=== PATIENT | female | born 1995 | race Caucasian/White ===

== ENCOUNTER → 2017-09-29 | Outpatient (REF) | payer OTHER ==
[2017-09-29 17:59] LABS: CHLAMYDIA DNA AMPLIFICATION NEGATIVE (NEGATIVE); GC DNA AMPLIFICATION NEGATIVE (NEGATIVE)
== END ==
LOC: M SFHCWAGY 11:37
DX: Z12.4 Encounter for screening for malignant neoplasm of cervix (principal); Z11.3 Encounter for screening for infections with a predominantly sexual mode of transmission

== ENCOUNTER → 2017-10-24 | Outpatient (REF) | payer OTHER | LOC: M LAB REF 13:29 | DX: J02.0 Streptococcal pharyngitis (principal) | CPT/HCPCS: 87070 ==

== ENCOUNTER 2018-06-03 10:22 | Emergency (ER) | payer OTHER ==
[2018-06-03] MEDS ORDERED: LORazepam 2 MG TAB PO (10:30)
[2018-06-03] MEDS: hydrOXYzine 25 MG TAB PO (10:49)
[2018-06-03 10:50] LABS: HEMATOCRIT 42.6 % (36.0-47.0); HEMOGLOBIN 14.7 g/dl (12.0-15.5); MEAN CORPUSCULAR HEMOGLOBIN 30.1 pg (27.0-33.0); MEAN CORPUSCULAR HGB CONC 34.5 g/dl (32.0-36.5); MEAN CORPUSCULAR VOLUME 87.1 fl (80.0-96.0); PLATELET COUNT, AUTOMATED 279 10^3/uL (150-450); RED BLOOD COUNT 4.89 10^6/uL (4.00-5.40)
[2018-06-03 11:03] LABS: CONTROL LINE HCG INT CTR LINE PRESENT; HCG, SERUM QUALITATIVE NEGATIVE (NEGATIVE)
[2018-06-03 11:30] LABS: ALBUMIN 4.3 GM/DL (3.2-5.2); ALBUMIN/GLOBULIN RATIO 1.48 (1.00-1.93); ALKALINE PHOSPHATASE 69 U/L (45-117); ALT/SGPT 22 U/L (12-78); ANION GAP 14 MEQ/L (8-16); AST/SGOT 16 U/L (7-37); BILIRUBIN,DIRECT < 0.1 MG/DL (0.0-0.2); BILIRUBIN,TOTAL 0.2 MG/DL (0.2-1.0); BLOOD UREA NITROGEN 7 MG/DL (7-18); CARBON DIOXIDE LEVEL 19 MEQ/L (21-32); CHLORIDE LEVEL 114 MEQ/L (98-107); ETHYL ALCOHOL (ETHANOL) 0.084 % (0.000-0.010); GLOMERULAR FILTRATION RATE > 60.0 (>60); GLUCOSE, FASTING 88 MG/DL (70-100); POTASSIUM SERUM 3.7 MEQ/L (3.5-5.1); SALICYLATE LEVEL 2.2 MG/DL (5.0-30.0); SODIUM LEVEL 147 MEQ/L (136-145); TOTAL PROTEIN 7.2 GM/DL (6.4-8.2)
[2018-06-03 11:31] LABS: ACETAMINOPHEN LEVEL < 2.0 UG/ML (10.0-30.0)
[2018-06-03 11:40] LABS: AMPHETAMINES LEVEL URINE NEGATIVE (NEGATIVE); BARBITURATES URINE NEGATIVE (NEGATIVE); BENZODIAZEPINES URINE NEGATIVE (NEGATIVE); CANNABINOIDS URINE NEGATIVE (NEGATIVE); COCAINE METABOLITE URINE NEGATIVE (NEGATIVE); METHADONE URINE NEGATIVE (NEGATIVE); OPIATES URINE NEGATIVE (NEGATIVE); PHENCYCLIDINE URINE NEGATIVE (NEGATIVE)
== END 2018-06-03 15:31 | disposition home or self-care (01) ==
LOC: M ED 10:22
DX: F43.20 Adjustment disorder, unspecified (principal); J45.909 Unspecified asthma, uncomplicated; Z79.3 Long term (current) use of hormonal contraceptives
CPT/HCPCS: G0480

== ENCOUNTER 2018-06-06 01:07 | Emergency (ER) | payer OTHER ==
[2018-06-06] MEDS ORDERED: MAGIC MOUTHWASH SUSPENSION BTL SS (01:30)
[2018-06-06] MEDS: MAGIC MOUTHWASH SUSPENSION BTL SS (01:47)
[2018-06-06] MEDS: LIDOCAINE 1% SDV 5 ML VIAL DILUENT (02:30)
[2018-06-06] MEDS: cefTRIAXone SOD 250 MG VIAL (J0696) IM (02:30)
== END 2018-06-06 02:45 | disposition home or self-care (01) ==
LOC: M ED 01:07
DX: J02.9 Acute pharyngitis, unspecified (principal); J45.909 Unspecified asthma, uncomplicated; F17.210 Nicotine dependence, cigarettes, uncomplicated
CPT/HCPCS: J0696

== ENCOUNTER → 2018-08-31 | Outpatient (REF) | payer OTHER ==
[~2018-08-31] MED LIST: DOXY100C37 PO; MAGICMW SS
== END ==
LOC: M SFHCWAGY 12:02
PROVIDERS: ATTEND Nurse Practitioner Family
DX: R10.9 Unspecified abdominal pain (principal); R30.0 Dysuria

== ENCOUNTER → 2018-09-05 | Outpatient (REF) | payer OTHER ==
[2018-09-05 20:59] LABS: CHLAMYDIA DNA AMPLIFICATION NEGATIVE (NEGATIVE); GC DNA AMPLIFICATION NEGATIVE (NEGATIVE)
== END ==
LOC: M SFHCWAGY 17:15
PROVIDERS: ATTEND Nurse Practitioner Family
DX: Z11.3 Encounter for screening for infections with a predominantly sexual mode of transmission (principal)

== ENCOUNTER → 2018-09-14 | Outpatient (CLI) | payer OTHER ==
--- NOTE | 2018-09-14 18:27 | REP ---
Pelvic sonography: History: Pelvic pain, breakthrough bleeding. Depo-Provera. Findings: Transabdominal and transvaginal scanning are performed. Uterine dimensions are normal at 7.8 x 3.3 x 4.0 cm. Endometrial echo is 0.4 cm in thickness. The uterus is retroverted. There is a small quantity of physiologic fluid at the fundus. Visualized bladder muller are smooth. Normal ovaries are seen. Right ovary dimensions are 3.8 x 1.8 x 2.2 cm. Left ovary measures 3.8 x 2.1 x 1.8 cm. Impression: Normal pelvic sonography. Retroverted uterus.
== END ==
LOC: M WHC 12:47
PROVIDERS: ATTEND Nurse Practitioner Family
DX: R10.2 Pelvic and perineal pain (principal); N92.1 Excessive and frequent menstruation with irregular cycle; N85.4 Malposition of uterus

== ENCOUNTER → 2019-02-15 | Outpatient (REF) | payer OTHER | LOC: M SFHCWAGY 10:05 | PROVIDERS: ATTEND Family Medicine | DX: Z12.4 Encounter for screening for malignant neoplasm of cervix (principal) ==

== ENCOUNTER → 2019-08-11 | Outpatient (REF) | payer OTHER ==
[2019-08-11 20:32] LABS: INFLUENZA A AMPLIFICATION NEGATIVE (NEGATIVE); INFLUENZA B AMPLIFICATION NEGATIVE (NEGATIVE)
== END ==
LOC: M LAB REF 10:07
PROVIDERS: ATTEND Physician Assistant Medical
DX: E50.9 Vitamin A deficiency, unspecified (principal)

== ENCOUNTER → 2022-02-27 | Outpatient (REF) | payer OTHER ==
[~2022-02-27] MED LIST changes: +DOXY-443 PO; -DOXY100C37 PO
== END ==
LOC: M LAB REF 17:26
PROVIDERS: ATTEND Physician Assistant Medical
DX: J02.9 Acute pharyngitis, unspecified (principal)

== ENCOUNTER → 2022-03-01 | Outpatient (CLI) | payer OTHER ==
[2022-03-03 16:08] LABS: EBV AB TO NUCLEAR ANTIGEN 81.7 U/mL (0.0-17.9); EBV VIRAL CAPSID AG IgG >600.0 U/mL (0.0-17.9); EBV VIRAL CAPSID AG IgM <36.0 U/mL (0.0-35.9)
== END ==
LOC: M PLALAB 15:43
PROVIDERS: ATTEND Family Medicine
DX: J02.9 Acute pharyngitis, unspecified (principal)

== ENCOUNTER → 2022-05-03 | Outpatient (CLI) | payer OTHER ==
[2022-05-03 19:18] LABS: APPEARANCE, URINE MANUAL CLEAR (CLEAR); COLOR, URINE MANUAL YELLOW (YELLOW)
[2022-05-03 19:22] LABS: BILIRUBIN, URINE MANUAL NEGATIVE (NEGATIVE); BLOOD URINE MANUAL NEGATIVE (NEGATIVE); GLUCOSE, URINE (UA) MANUAL NEGATIVE (NEGATIVE); KETONE, URINE MANUAL NEGATIVE (NEGATIVE); LEUKOCYTE ESTERASE, URINE MAN NEGATIVE (NEGATIVE); NITRITE, URINE MANUAL NEGATIVE (NEGATIVE); PROTEIN, URINE MANUAL NEGATIVE (NEGATIVE); UROBILINOGEN, URINE MANUAL NORMAL (NORMAL)
[2022-05-03 19:53] LABS: GC DNA AMPLIFICATION NEGATIVE (NEGATIVE)
== END ==
LOC: M RAD 14:03
PROVIDERS: ATTEND Physician Assistant Medical
DX: R10.30 Lower abdominal pain, unspecified (principal)

== ENCOUNTER → 2022-06-09 | Outpatient (CLI) | payer OTHER | LOC: M PLAIMG 16:26 | PROVIDERS: ATTEND Family Medicine | DX: M25.572 Pain in left ankle and joints of left foot (principal) ==

== ENCOUNTER → 2022-06-24 | Outpatient (CLI) | payer OTHER | LOC: M RAD 10:28 | PROVIDERS: ATTEND Physician Assistant | DX: S92.152A Displaced avulsion fracture (chip fracture) of left talus, initial encounter for closed fracture (principal); W18.30XA Fall on same level, unspecified, initial encounter; Y92.009 Unspecified place in unspecified non-institutional (private) residence as the place of occurrence of the external cause ==

== ENCOUNTER → 2024-08-21 | Outpatient (REF) | payer OTHER ==
[~2024-08-21] MED LIST changes: +DOXY-441 PO; -DOXY-443 PO
== END ==
LOC: M LAB REF 21:40
PROVIDERS: ATTEND Physician Assistant Medical
DX: J02.9 Acute pharyngitis, unspecified (principal)

== ENCOUNTER → 2025-01-03 | Outpatient (REF) | payer OTHER | LOC: M PLALAB 10:02 | PROVIDERS: ATTEND Advanced Practice Midwife | DX: Z12.4 Encounter for screening for malignant neoplasm of cervix (principal) ==

== ENCOUNTER → 2025-01-03 | Outpatient (CLI) | payer OTHER ==
[2025-01-03 14:14] LABS: PLATELET COUNT, AUTOMATED 284 10^3/uL (150-450)
[2025-01-03 14:20] LABS: ALT/SGPT 37 U/L (7.0-40); AST/SGOT 21 U/L (<34); CALCIUM LEVEL 9.2 MG/DL (8.5-10.1); CARBON DIOXIDE LEVEL 25 MMOL/L (20-31); CHLORIDE LEVEL 105 MMOL/L (98-107); CHOLESTEROL LEVEL 166 MG/DL (<200); CHOLESTEROL RISK RATIO 3.30 (<5); CREATININE FOR GFR 0.77 MG/DL (0.55-1.30); GLOMERULAR FILTRATION RATE > 90.0 (>60); LDL CHOLESTEROL 100.4 MG/DL (<100); NON-HDL-C 115.8 MG/DL; POTASSIUM SERUM 4.6 MMOL/L (3.5-5.1); SODIUM LEVEL 143 MMOL/L (136-145); TRIGLYCERIDES LEVEL 77 MG/DL (<150)
[2025-01-03 14:24] LABS: ESTIMATED AVERAGE GLUCOSE 100.0 MG/DL (60-110)
[2025-01-03 14:25] LABS: FREE T4 1.11 NG/DL (0.89-1.76)
== END ==
LOC: M PLALAB 10:15
PROVIDERS: ATTEND Advanced Practice Midwife
DX: Z01.419 Encounter for gynecological examination (general) (routine) without abnormal findings (principal); Z12.4 Encounter for screening for malignant neoplasm of cervix